=== PATIENT | female | born 1975 | race Hispanic/Latino ===

== ENCOUNTER 2017-11-13 09:56 | Inpatient (IN) | payer SELFPAY ==
[~2017-11-13] VITALS: Ht 154.9 cm; Wt 99.2 kg
[2017-11-13] MEDS ORDERED: FAMOTIDINE 20MG TAB 20 MG TAB ONE (10:44)
[2017-11-13 11:02] LABS: BASOPHILS % (AUTO) 0.4 % (0.0-5.0); HEMATOCRIT 37.1 % (36-48); MEAN CORPUSCULAR HEMOGLOBIN 21.3 pg (27.0-33.0); MEAN CORPUSCULAR HGB CONC 31.4 g/dL (32.0-36.0); MEAN CORPUSCULAR VOLUME 67.9 fL (79-99); MONOCYTES % (AUTO) 3.7 % (3.0-13.0); NEUTROPHILS % (AUTO) 89.9 % (40.0-77.0); PLATELET COUNT (AUTO) 349 K/uL (130-400); RED BLOOD CELL COUNT(AUTO) 5.47 MIL/uL (4.00-5.50); RED CELL DISTRIBUTION WIDTH 17.8 % (11.0-15.5); WHITE BLOOD COUNT (AUTO) 20.2 K/uL (4.8-10.8)
[2017-11-13 11:15] LABS: CREATININE 0.7 mg/dL (0.5-1.5); POTASSIUM 3.8 mmol/L (3.5-5.1)
[2017-11-13 11:18] LABS: APPEARANCE,URINE Turbid (CLEAR); BILIRUBIN,URINE Small (NEGATIVE); COLOR,URINE Orange (YELLOW); GLUCOSE, URINE (UA) Negative (NEGATIVE); KETONES,URINE 15 mg/dL (NEGATIVE); LEUKOCYTE ESTERASE ,URINE Small (NEGATIVE); NITRATE,URINE Negative (NEGATIVE); OCCULT BLOOD,URINE Large (NEGATIVE); PROTEIN,URINE Trace (NEGATIVE); UROBILINOGEN,URINE 0.2 mg/dL (0.2-1.0)
[2017-11-13 11:20] LABS: ALBUMIN 3.1 g/dL (3.5-5.0); BILIRUBIN,DIRECT 0.1 mg/dL (0.0-0.3); BILIRUBIN,TOTAL 0.4 mg/dL (0.2-1.0); TOTAL PROTEIN, SERUM 7.8 g/dL (6.0-8.3)
[2017-11-13 11:26] LABS: HCG,QUAL RESULT NEGATIVE (NEGATIVE)
[2017-11-13 11:28] LABS: SQUAMOUS EPITHELIAL CELL,UR Few /HPF (0-2)
[2017-11-13 11:29] LABS: AMORPHOUS SEDIMENT,UR Many /LPF (None Seen); BACTERIA,URINE Moderate /HPF (None Seen)
[2017-11-13 11:30] LABS: WBC,URINE 0-1 /HPF (0-1)
[2017-11-13 12:21] LABS: OCCULT BLOOD STOOL SINGLE ONLY POSITIVE (NEGATIVE)
[2017-11-13] MEDS ORDERED: LEVOFLOXACIN 500 MG/D5W 100 ML 100 ML ONE (15:09)
[2017-11-13 17:53] VITALS: BP 115/69
[2017-11-13 19:16] VITALS: BP 106/58
[2017-11-13] MEDS ORDERED: PEG 3350/NA SULF,BICARB,CL/KCL 4000 ML SOLN PO STA (19:24)
[2017-11-13] MEDS: SODIUM CHLORIDE 0.9% 1000ML 1,000 ML IV SCH ×2 (19:35→21:59)
[2017-11-13] MEDS: MORPHINE SULFATE 2 MG/ML 1ML SYG IV PRN (19:52)
[2017-11-13] MEDS: METRONIDAZOLE 500 MG TABLET PO SCH (21:59)
[2017-11-13 23:39] VITALS: BP 121/76
[2017-11-13] MEDS: ONDANSETRON HCL 4 MG/2 ML VIAL IV PRN (23:57)
[2017-11-14] VITALS (23 sets, daily range): BP systolic 96–135; BP diastolic 49–78
[2017-11-14] MEDS: SODIUM CHLORIDE 0.9% 1000ML 1,000 ML IV SCH ×2 (03:56→17:48)
[2017-11-14 05:25] LABS: BASOPHILS % (AUTO) 0.8 % (0.0-5.0); EOSINOPHILS % (AUTO) 0.2 % (0.0-8.0); HEMATOCRIT 35.2 % (36-48); LYMPHOCYTES % (AUTO) 13.4 % (21.0-51.0); MEAN CORPUSCULAR HEMOGLOBIN 22.1 pg (27.0-33.0); MEAN CORPUSCULAR HGB CONC 32.1 g/dL (32.0-36.0); MEAN CORPUSCULAR VOLUME 68.7 fL (79-99); MONOCYTES % (AUTO) 4.2 % (3.0-13.0); NEUTROPHILS % (AUTO) 81.4 % (40.0-77.0); PLATELET COUNT (AUTO) 370 K/uL (130-400); RED BLOOD CELL COUNT(AUTO) 5.12 MIL/uL (4.00-5.50); RED CELL DISTRIBUTION WIDTH 17.9 % (11.0-15.5); WHITE BLOOD COUNT (AUTO) 11.7 K/uL (4.8-10.8)
[2017-11-14 05:35] LABS: CREATININE 0.7 mg/dL (0.5-1.5); POTASSIUM 3.4 mmol/L (3.5-5.1)
[2017-11-14] MEDS: METRONIDAZOLE 500 MG TABLET PO SCH ×3 (09:00→21:36)
[2017-11-14] MEDS: PANTOPRAZOLE 40 MG/VIAL IVP SCH (09:07)
[2017-11-14] MEDS: ONDANSETRON HCL 4 MG/2 ML VIAL IV PRN (09:08)
[2017-11-14] MEDS: MORPHINE SULFATE 2 MG/ML 1ML SYG IV PRN ×2 (09:08→17:58)
[2017-11-14] MEDS ORDERED: LIDOCAINE HCL-MPF 2% 5ML VIAL ONE (12:38)
[2017-11-14] MEDS ORDERED: PROPOFOL 10 MG/ML 20ML VIAL IV ONE ×3 (12:38→12:51)
[2017-11-14] MEDS ORDERED: FENTANYL CITRATE PF 50 MCG/1 ML 2ML VIAL ONE (12:44)
[2017-11-14] MEDS ORDERED: PHARMACY COMMUNICATION MISC SCH (16:45)
[2017-11-14] MEDS: LEVOFLOXACIN 500 MG/D5W 100 ML 100 ML IV SCH (17:48)
[2017-11-14] MEDS ORDERED: LIDOCAINE HCL-MPF 1% 2ML VIAL IVP PRN (18:00)
[2017-11-14] MEDS ORDERED: POTASSIUM CHLORIDE 20MEQ/100ML 100 ML IV PRN (18:00)
[2017-11-14] MEDS ORDERED: POTASSIUM CHLORIDE 10% ELIXIR 20 MEQ/15 ML UDCUP PO PRN (18:00)
[2017-11-14] MEDS ORDERED: MESALAMINE 800 MG TABLET.DR PO SCH (21:00)
[2017-11-14] MEDS: POTASSIUM CHLORIDE 20 MEQ ERTAB PO PRN (21:36)
[2017-11-15] MEDS: SODIUM CHLORIDE 0.9% 1000ML 1,000 ML IV SCH ×4 (01:46→23:31)
[2017-11-15 03:58] VITALS: BP 116/75
[2017-11-15 07:30] VITALS: BP 123/74
[2017-11-15] MEDS: MESALAMINE 800 MG PO SCH ×3 (09:00→21:00)
[2017-11-15] MEDS ORDERED: MESALAMINE 800 MG TABLET.DR PO SCH (09:00)
[2017-11-15 11:00] VITALS: BP_SYST 103; BP_SYST 124; BP_DIAS 61; BP_DIAS 75
[2017-11-15] MEDS: PANTOPRAZOLE 40 MG/VIAL IVP SCH (11:06)
[2017-11-15] MEDS: PREDNISONE 20 MG TABLET PO SCH (11:06)
[2017-11-15] MEDS: METRONIDAZOLE 500 MG TABLET PO SCH ×3 (11:08→21:07)
[2017-11-15] MEDS: POTASSIUM CHLORIDE 20 MEQ ERTAB PO PRN (11:10)
[2017-11-15 15:30] VITALS: BP 117/64
[2017-11-15] MEDS: LEVOFLOXACIN 500 MG/D5W 100 ML 100 ML IV SCH (17:30)
[2017-11-15 19:00] VITALS: BP 102/75
[2017-11-16] VITALS: BP 106/68
[2017-11-16 03:55] LABS: BASOPHILS % (AUTO) 0.9 % (0.0-5.0); EOSINOPHILS % (AUTO) 0.8 % (0.0-8.0); HEMATOCRIT 32.6 % (36-48); LYMPHOCYTES % (AUTO) 21.3 % (21.0-51.0); MEAN CORPUSCULAR HEMOGLOBIN 21.6 pg (27.0-33.0); MEAN CORPUSCULAR VOLUME 67.7 fL (79-99); MONOCYTES % (AUTO) 6.6 % (3.0-13.0); NEUTROPHILS % (AUTO) 70.4 % (40.0-77.0); PLATELET COUNT (AUTO) 391 K/uL (130-400); RED BLOOD CELL COUNT(AUTO) 4.82 MIL/uL (4.00-5.50); RED CELL DISTRIBUTION WIDTH 17.8 % (11.0-15.5); WHITE BLOOD COUNT (AUTO) 11.2 K/uL (4.8-10.8)
[2017-11-16] MEDS ORDERED: MESA1.2T PO (03:55)
[2017-11-16] MEDS ORDERED: PRED20TA3 PO (03:56)
[2017-11-16 04:00] VITALS: BP 119/63
[2017-11-16 04:15] LABS: CREATININE 0.7 mg/dL (0.5-1.5); POTASSIUM 3.6 mmol/L (3.5-5.1)
[2017-11-16] MEDS: POTASSIUM CHLORIDE 20 MEQ ERTAB PO PRN ×2 (04:44→09:14)
[2017-11-16] MEDS ORDERED: PANTOPRAZOLE SODIUM 40 MG TABLET.DR PO SCH (07:30)
[2017-11-16 08:19] VITALS: BP 121/73
[2017-11-16] MEDS: MESALAMINE 800 MG PO SCH ×2 (09:00→14:00)
[2017-11-16] MEDS: PREDNISONE 20 MG TABLET PO SCH (09:13)
[2017-11-16] MEDS: SODIUM CHLORIDE 0.9% 1000ML 1,000 ML IV SCH ×2 (09:13→15:40)
[2017-11-16] MEDS: METRONIDAZOLE 500 MG TABLET PO SCH ×2 (09:13→15:52)
[2017-11-16 12:09] VITALS: BP 114/56
[2017-11-16] MEDS: LEVOFLOXACIN 500 MG/D5W 100 ML 100 ML IV SCH (15:52)
[2017-11-16 15:54] VITALS: BP 107/78
[2017-11-16 19:56] VITALS: BP 112/64
== END 2017-11-16 20:15 | disposition home or self-care (01) | DRG 872 ==
LOC: EDH 09:56 → EDHIP 09:57 → 3AH 17:00
PROVIDERS: ADMIT Hospitalist; ATTEND Hospitalist
PROC: 0DBK8ZX Excision of Ascending Colon, Via Natural or Artificial Opening Endoscopic, Diagnostic (ICD-10-PCS; principal; 2017-11-14)
PROC: 0DBL8ZX Excision of Transverse Colon, Via Natural or Artificial Opening Endoscopic, Diagnostic (ICD-10-PCS; 2017-11-14)
PROC: 0DBH8ZX Excision of Cecum, Via Natural or Artificial Opening Endoscopic, Diagnostic (ICD-10-PCS; 2017-11-14)
DX: A41.51 Sepsis due to Escherichia coli [E. coli] (principal); Z68.41 Body mass index [BMI] 40.0-44.9, adult; K51.90 Ulcerative colitis, unspecified, without complications; A02.1 Salmonella sepsis; K52.9 Noninfective gastroenteritis and colitis, unspecified; K21.9 Gastro-esophageal reflux disease without esophagitis; A03.9 Shigellosis, unspecified; K29.70 Gastritis, unspecified, without bleeding; B96.20 Unspecified Escherichia coli [E. coli] as the cause of diseases classified elsewhere; E66.9 Obesity, unspecified; K76.0 Fatty (change of) liver, not elsewhere classified; Z90.49 Acquired absence of other specified parts of digestive tract; Z88.8 Allergy status to other drugs, medicaments and biological substances
CPT/HCPCS: 36415; 45380; 74176; 80048; 80076; 81001; 81025; 82270; 83690; 84132; 85025; 86677; 87046; 87205; 87324; 88305; C9113; J1956; J2405; J2704; J3010; J3490; J7030